=== PATIENT | male | born 1980 ===

== ENCOUNTER 2019-03-15 18:14 | Emergency (ER) | payer OTHER ==
[~2019-03-15] VITALS: Ht 180.3 cm; Wt 113.4 kg
[2019-03-15] MEDS ORDERED: IBUP800 PO (21:17)
[2019-03-15] MEDS ORDERED: HYDR1TAB94 PO (21:36)
== END 2019-03-15 21:40 | disposition home or self-care (01) ==
LOC: ER 18:14
DX: M79.672 Pain in left foot (principal); M25.572 Pain in left ankle and joints of left foot; Z87.891 Personal history of nicotine dependence; W22.8XXA Striking against or struck by other objects, initial encounter
CPT/HCPCS: 29515; 73610; 73630; 73700; 99284-25; A9270

== ENCOUNTER 2024-05-01 22:28 | Emergency (ER) | payer BC ==
[~2024-05-01] VITALS: Ht 180.3 cm; Wt 127.0 kg
[~2024-05-01 22:28] MED LIST: HYDR1TAB94 PO; IBUP800 PO
[2024-05-01] MEDS ORDERED: LISI20 PO (22:43)
[2024-05-01] MEDS ORDERED: AMLO10 PO (22:43)
[2024-05-01] MEDS ORDERED: Aspirin 81 MG Chew PO ONE (22:45)
[2024-05-01 22:51] LABS: BASOPHILS ABSOLUTE AUTO 0.04 K/mm3 (0.00-0.23); BASOPHILS PERCENT AUTO 1 % (0-2); EOSINOPHILS ABSOLUTE AUTO 0.37 K/mm3 (0.00-0.68); EOSINOPHILS PERCENT AUTO 5 % (0-6); Hematocrit 45.5 % (37.0-53.0); Hemoglobin 15.9 g/dL (13.5-17.5); IMMATURE GRAN ABSOLUTE AUTO 0.02 K/mm3 (0.00-0.10); IMMATURE GRAN PERCENT AUTO 0 % (0-1); LYMPHOCYTES PERCENT AUTO 45 % (21-46); MONOCYTES ABSOLUTE AUTO 0.52 K/mm3 (0.16-1.47); MONOCYTES PERCENT AUTO 7 % (4-13); Mean Corpuscular HGB 31.7 pg (26.0-34.0); Mean Corpuscular HGB Conc 34.9 g/dL (31.5-36.5); Mean Corpuscular Volume 91 fL (80-100); Mean Platelet Volume 8.7 fL (9.1-12.4); NEUTROPHILS ABSOLUTE AUTO 3.14 K/mm3 (1.96-9.15); NEUTROPHILS PERCENT AUTO 43 % (41-73); Platelet Count 304 K/mm3 (150-400); RDW Coefficient Variation 12.2 % (11.7-14.2); RDW Standard Deviation 40.1 fL (35.1-46.3); Red Blood Cell Count 5.02 M/mm3 (4.30-5.90); White Blood Cell Count 7.39 K/mm3 (4.00-11.30)
[2024-05-01 23:05] LABS: Bun/Creatinine Ratio 16.4 (12.0-20.0); Calcium, Blood 8.9 mg/dL (8.5-10.1); Creatinine, Blood 0.73 mg/dL (0.60-1.20); Magnesium, Blood 1.8 mg/dL (1.6-2.4); Potassium, Blood 3.7 mmol/L (3.5-5.5)
[2024-05-02] MEDS ORDERED: ACET500 PO (01:33)
[2024-05-02 01:45] VITALS: BP 140/101
== END 2024-05-02 01:54 | disposition home or self-care (01) ==
LOC: ER 22:28
PROVIDERS: Emergency Medicine
DX: R07.2 Precordial pain (principal); I10 Essential (primary) hypertension; E78.5 Hyperlipidemia, unspecified; Z79.899 Other long term (current) drug therapy; Z87.891 Personal history of nicotine dependence
CPT/HCPCS: 71045; 80048; 83735; 84484; 85025; 93005; 93010; 99285-25; A9270